=== PATIENT | male | born 1975 | race Caucasian/White ===

== ENCOUNTER 2020-08-22 13:30 | Emergency (ER) | payer OTHER, SELFPAY ==
[2020-08-22 14:06] VITALS: BP 138/93; PULSE 75; RESP 15; TEMP 36.6; O2SAT 95; BMI 30.9
--- NOTE | 2020-08-22 14:08 | DI.RAD.S_ITS ---
PROCEDURE: XR KNEE LT 3V INDICATIONS: left knee pain TECHNIQUE: 3 views of the knee were acquired. COMPARISON: None. FINDINGS: Bones: Small curvilinear ossicle at the posterior aspect of the joint seen on the lateral projection. No dislocations. Lateral compartment tibial spur. No suspicious bony lesions. Soft tissues: Large suprapatellar joint effusion. No suspicious soft tissue calcifications. IMPRESSION: Curvilinear ossicle at the posterior aspect of the tibia is suspicious for avulsion fracture. Large joint effusion. Consider CT or MRI for further evaluation. Dictated by: Matthias Sarabia M.D. on 08/22/2020 at 14:40 Approved by: Matthias Sarabia M.D. on 08/22/2020 at 14:42
--- NOTE | 2020-08-22 22:08 | ED_ITS ---
HPI - Extremity Problem General Chief complaint: Extremity Problem,Nontraumatic Stated complaint: knee pain/can't bend all the way Time Seen by Provider: 08/22/20 22:05 Source: patient Mode of arrival: Ambulatory Limitations: no limitations History of Present Illness HPI Narrative: 45-year-old male daily smoker presents with a chief complaint of left knee pain off and on for the past few months if not years. He states some days he has significant pain in his knee, particularly after lots of exertion. When it is flaring up his pain is significantly worse with motion and weight- bearing. He denies any numbness, tingling or weakness. He denies any traumatic injury. He states there is no obvious pattern to the worsening or improvement of his symptoms MD Complaint: joint paint Onset (ago): month(s) Pain Consistency: intermittent Quality: aching Radiation: none Relieving factors: rest Exacerbating factors: walking Associated symptoms: denies other symptoms Related Data Previous Rx's Medication Instructions Recorded ketorolac 10 mg PO Q6H PRN #14 tab 08/22/20 Allergies Allergy/AdvReac Type Severity Reaction Status Date / Time No Known Drug Allergies Allergy Verified 08/22/20 14:06 Review of Systems Constitutional Constitutional: Denies chills, Denies fatigue, Denies fever(s), Denies frequent falls, Denies lethargy and Denies weakness Eyes Eyes: Denies change in vision, Denies eye discharge, Denies irritation and Denies loss of vision ENT Ears, Nose, Mouth, and Throat: Denies change in voice, Denies dizziness, Denies neck pain, Denies sore throat and Denies throat swelling Cardiovascular Cardiovascular: Denies chest pain, Denies irregular heart rhythm, Denies lightheadedness, Denies palpitations, Denies dyspnea, Denies dyspnea on exertion and Denies orthopnea Respiratory Respiratory: Denies cough, Denies dyspnea, Denies dyspnea on exertion and Denies wheezing Gastrointestinal Gastrointestinal: Denies abdominal pain, Denies change in bowel habits, Denies diarrhea, Denies nausea and Denies vomiting Musculoskeletal Musculoskeletal: Reports arthralgias, Reports limited range of motion, Denies neck pain and Denies numbness Integumentary/Breasts Skin/Breast: Denies pruritus, Denies erythema, Denies rash and Denies wounds Neurologic Neurologic: Denies behavioral changes, Denies confusion, Denies dizziness, Denies frequent falls, Denies loss of vision, Denies numbness and Denies weakness Psychiatric Psychiatric: Denies anxiety, Denies behavioral changes, Denies confusion, Denies depression, Denies homicidal ideation and Denies suicidal ideation Endocrine Endocrine: Denies fatigue, Denies flushing and Denies palpitations Hematologic/Lymphatic Hematologic/Lymphatic: Denies easy bruising Allergic/Immunologic Allergic/Immunologic: Denies urticaria, Denies throat swelling and Denies wheezing Patient History Surgical History History of vasectomy Social History Smoking Status: Current every day smoker Smoking Status: Current every day smoker alcohol intake frequency: holidays/special occasions only Substance Use Type: does not use Exam Narrative Exam Narrative: GENERAL: [45] year old patient appears stated age. Well- developed patient, in mild distress. HEAD: Atraumatic. Normocephalic. EYES: Pupils equal round and reactive. Extraocular motions intact. No scleral icterus. No injection or drainage. ENT: Nose without bleeding, purulent drainage. Throat without erythema, tonsillar hypertrophy or exudate. Airway patent. NECK: Trachea midline. Non tender CARDIOVASCULAR: Regular rate and rhythm without murmurs, gallops, or rubs. RESPIRATORY: Clear to auscultation. Breath sounds equal bilaterally. No wheezes, rales, or rhonchi. GASTROINTESTINAL: Abdomen soft, non-tender, nondistended. EXTREMITIES: No edema or joint tenderness. No ligamentous instability, effusion, erythema or warmth BACK: Nontender without deformity or crepitance. No flank tenderness. NEURO: AOx3. SKIN: No rash or erythema of visible areas Initial Vital Signs Initial Vital Signs: Vital Signs Temperature 97.9 F 08/22/20 14:06 Pulse Rate 75 08/22/20 14:06 Respiratory Rate 15 08/22/20 14:06 Blood Pressure 138/93 H 08/22/20 14:06 Pulse Oximetry 95 08/22/20 14:06 Course Course Course Narrative: Patient not currently having pain. No significant findings on exam. Patient able to stand and ambulate without difficulty. X-ray does suggest an abnormality such as a possible avulsion fracture, I did discuss at length with the patient about the potential of a CT scan to further elucidate, we both sure the opinion that given the chronicity of his symptoms, and the on likelihood of this changing the disposition that we will hold off on CT at this point time and encouraged close follow-up. Return precautions given Orders Ordered: ED Orders 08/22/20 14:08 XR knee LT 3V Stat Vital Signs Vital signs: Vital Signs - 8 hr 08/22/20 22:26 Pulse Rate 61 Respiratory Rate 18 Blood Pressure 132/70 Pulse Oximetry 96 Discharge Plan Departure Patient Disposition: Home Clinical Impression: Chronic knee pain Qualifiers: Laterality: left Qualified Code(s): M25.562 - Pain in left knee Instructions: DI for Knee Pain Activity Restrictions/Additional Instructions: *You have been diagnosed with [chronic left knee pain, your exam is very reassuring and has we discussed the x-ray does show an abnormal ?meghna? of bone but we will hold off on advanced imaging at this point in time] *What to do: *Please continue to take your regular medications as directed. [x ] New medication prescriptions sent to your pharmacy: [[facility] ] [ ] New medication written as a paper prescription [ ] No new medications given *Please follow up with your primary care provider in 2-3 days, call for an appointment. Let them know you were seen in the Emergency Department and that we ask that you be seen in follow up. We will electronically transmit a record of today's note if your PCP is in our system *If you do not have a primary care provider please contact the [facility] Resource line at [phone]. They will ask some questions about your medical history and help get you set up with a doctor in the community. *Return to Emergency Department if you should have any new, worsening or concerning symptoms, such as [fever greater than 101 F, shaking chills, worsening pain, persistent vomiting or other bothersome symptoms] Prescriptions: New ketorolac 10 mg tablet 10 mg PO Q6H PRN (Reason: pain) Qty: 14 RF: 0 Referrals: Suzanne Vidal DO [Primary Care Provider] -
[2020-08-22 22:26] VITALS: BP 132/70; PULSE 61; RESP 18; O2SAT 96
== END 2020-08-22 22:27 | disposition home or self-care (01) ==
PROVIDERS: Emergency Provider Emergency Medicine; PCP Family Medicine
DX: M25.562 Pain in left knee (principal)
CPT/HCPCS: 73562; 99283